=== PATIENT | male | born 1960 | race Caucasian/White ===

== ENCOUNTER → 2019-10-08 11:01 | Outpatient (BNVA) | payer BC, SELFPAY | PROVIDERS: Family Provider Family Medicine; PCP Family Medicine; Visit Provider Family Medicine | DX: E11.42 Type 2 diabetes mellitus with diabetic polyneuropathy (principal); R35.1 Nocturia | CPT/HCPCS: 80053; 80061; 83036; 84153; 85025 ==

== ENCOUNTER → 2020-01-17 08:30 | Outpatient (BNVA) | payer BC, SELFPAY | PROVIDERS: Family Provider Family Medicine; PCP Family Medicine; Visit Provider Family Medicine | DX: E11.42 Type 2 diabetes mellitus with diabetic polyneuropathy (principal) | CPT/HCPCS: 80053; 83036 ==

== ENCOUNTER → 2020-03-31 09:21 | Outpatient (BNVA) | payer BC, SELFPAY | PROVIDERS: Family Provider Family Medicine; PCP Family Medicine; Visit Provider Family Medicine | DX: E78.5 Hyperlipidemia, unspecified (principal); M17.0 Bilateral primary osteoarthritis of knee; F41.1 Generalized anxiety disorder; E11.42 Type 2 diabetes mellitus with diabetic polyneuropathy; Z68.32 Body mass index [BMI] 32.0-32.9, adult; F17.211 Nicotine dependence, cigarettes, in remission; Z71.89 Other specified counseling | CPT/HCPCS: 80053; 80061 ==

== ENCOUNTER → 2020-04-30 10:21 | Outpatient (BNVA) | payer BC, SELFPAY | PROVIDERS: Family Provider Family Medicine; PCP Family Medicine; Visit Provider Family Medicine | DX: E11.42 Type 2 diabetes mellitus with diabetic polyneuropathy (principal); M54.5 Low back pain | CPT/HCPCS: 80053; 83036 ==

== ENCOUNTER → 2020-07-29 14:11 | Outpatient (BNVA) | payer BC, SELFPAY | PROVIDERS: Family Provider Family Medicine; PCP Family Medicine; Visit Provider Family Medicine | DX: E11.42 Type 2 diabetes mellitus with diabetic polyneuropathy (principal); E78.5 Hyperlipidemia, unspecified | CPT/HCPCS: 80053; 81015; 82043; 83036; 85025 ==

== ENCOUNTER → 2020-11-26 09:09 | Outpatient (BNVA) | payer OTHER, SELFPAY | PROVIDERS: Family Provider Family Medicine; PCP Family Medicine; Visit Provider Family Medicine | DX: F41.1 Generalized anxiety disorder (principal); E11.42 Type 2 diabetes mellitus with diabetic polyneuropathy; E78.5 Hyperlipidemia, unspecified; R03.0 Elevated blood-pressure reading, without diagnosis of hypertension | CPT/HCPCS: 80053; 80061; 83036 ==

== ENCOUNTER → 2021-02-24 09:13 | Outpatient (BNVA) | payer OTHER, SELFPAY | PROVIDERS: Family Provider Family Medicine; PCP Family Medicine; Visit Provider Family Medicine | DX: E11.42 Type 2 diabetes mellitus with diabetic polyneuropathy (principal); M17.0 Bilateral primary osteoarthritis of knee; F41.1 Generalized anxiety disorder; E78.5 Hyperlipidemia, unspecified; Z68.32 Body mass index [BMI] 32.0-32.9, adult; F17.211 Nicotine dependence, cigarettes, in remission; Z71.89 Other specified counseling | CPT/HCPCS: 80053; 83036 ==

== ENCOUNTER → 2021-08-25 08:41 | Outpatient (BNVA) | payer OTHER, SELFPAY | PROVIDERS: Family Provider Family Medicine; PCP Family Medicine; Visit Provider Family Medicine | DX: E11.42 Type 2 diabetes mellitus with diabetic polyneuropathy (principal) | CPT/HCPCS: 80053; 82043; 83036; 85025 ==

== ENCOUNTER → 2021-09-24 08:45 | Outpatient (BNVA) | payer OTHER, SELFPAY | PROVIDERS: Family Provider Family Medicine; PCP Family Medicine; Visit Provider Family Medicine | DX: E11.42 Type 2 diabetes mellitus with diabetic polyneuropathy (principal); E78.5 Hyperlipidemia, unspecified; F41.1 Generalized anxiety disorder; R03.0 Elevated blood-pressure reading, without diagnosis of hypertension | CPT/HCPCS: 80053 ==

== ENCOUNTER → 2021-11-17 09:17 | Outpatient (BNVA) | payer OTHER, SELFPAY | PROVIDERS: Family Provider Family Medicine; PCP Family Medicine; Visit Provider Family Medicine | DX: E11.42 Type 2 diabetes mellitus with diabetic polyneuropathy (principal); E78.5 Hyperlipidemia, unspecified | CPT/HCPCS: 80061; 83036 ==

== ENCOUNTER 2022-05-20 10:15 | Outpatient (CLI) | payer OTHER, SELFPAY | END 2022-05-20 10:16 | disposition home or self-care (01) | LOC: SPT 10:16 | PROVIDERS: Family Provider Family Medicine; PCP Family Medicine; Visit Provider Podiatrist Foot & Ankle Surgery | DX: Z46.89 Encounter for fitting and adjustment of other specified devices (principal); M21.41 Flat foot [pes planus] (acquired), right foot; M21.42 Flat foot [pes planus] (acquired), left foot; E11.42 Type 2 diabetes mellitus with diabetic polyneuropathy | CPT/HCPCS: 97760; L3030 ==

== ENCOUNTER → 2022-08-16 09:55 | Outpatient (BNVA) | payer OTHER, SELFPAY | PROVIDERS: Family Provider Family Medicine; PCP Family Medicine; Visit Provider Family Medicine | DX: E78.5 Hyperlipidemia, unspecified (principal); E11.42 Type 2 diabetes mellitus with diabetic polyneuropathy; R35.1 Nocturia; M17.0 Bilateral primary osteoarthritis of knee; H61.23 Impacted cerumen, bilateral; E11.9 Type 2 diabetes mellitus without complications | CPT/HCPCS: 80053; 80061; 82043; 83036; 84153; 85025 ==

== ENCOUNTER → 2022-12-06 10:38 | Outpatient (BNVA) | payer OTHER, SELFPAY | PROVIDERS: Family Provider Family Medicine; PCP Family Medicine; Visit Provider Family Medicine | DX: E11.42 Type 2 diabetes mellitus with diabetic polyneuropathy (principal) | CPT/HCPCS: 80053; 83036 ==

== ENCOUNTER → 2023-05-13 11:52 | Outpatient (BNVA) | payer OTHER, SELFPAY | PROVIDERS: Family Provider Family Medicine; PCP Family Medicine; Visit Provider Family Medicine | DX: E11.42 Type 2 diabetes mellitus with diabetic polyneuropathy (principal) | CPT/HCPCS: 80053; 80061; 82043; 83036; 85025 ==

== ENCOUNTER → 2023-11-07 08:23 | Outpatient (BNVA) | payer OTHER, SELFPAY | PROVIDERS: Family Provider Family Medicine; PCP Family Medicine; Visit Provider Family Medicine | DX: E11.42 Type 2 diabetes mellitus with diabetic polyneuropathy (principal); R35.1 Nocturia | CPT/HCPCS: 80048; 83036; 84153 ==

== ENCOUNTER → 2024-03-27 13:32 | Outpatient (BNVA) | payer OTHER, SELFPAY | PROVIDERS: Family Provider Family Medicine; PCP Family Medicine | DX: E11.42 Type 2 diabetes mellitus with diabetic polyneuropathy (principal); E78.5 Hyperlipidemia, unspecified | CPT/HCPCS: 80053; 80061; 83036 ==

== ENCOUNTER 2024-05-07 08:56 | Day surgery (SDC) | payer OTHER, SELFPAY ==
--- NOTE | 2024-05-07 09:14 | ANES.PREANE2 ---
Pre-Anesthetic Assessment Height/Weight: Height 1.68 m Operation Date: 05/07/24 10:00 Proposed Procedures p Colonoscopy - 77854, Z12.11, G0121(Not Applicable) - Anand Mazariegos MD Familial anesthetic complications: None Was Beta Felicia taken within 24 hours: N/A Was Clonidine taken within 24 hours: N/A Last intake: > 8hrs Social No alcohol and No tobacco Exam alert, oriented x 3, clear to auscultation bilaterally and regular rate & rhythm Airway Mallampati: Class II Dentition: chipped and other (multiple missing) CV/HEM Hypertension Metabolic Diabetes Mellitus Anesthetic Plan ASA status: 3 Anesthesia: MAC Risk of > 500 ml blood loss (7ml/kg in children): No Medications/Allergies Home Medications Medication Instructions Recorded Confirmed Last Taken Type Custom Sole Supports #1 ea 03/02/22 03/29/24 Unknown Rx naproxen 500 mg tablet (Naprosyn) 500 mg PO BID PRN pain #180 tabs 12/06/22 05/03/24 Unknown Rx lisinopril 5 mg tablet 5 mg PO DAILY #90 tabs 11/07/23 05/03/24 05/02/24 Rx metformin 1,000 mg tablet 1,000 mg PO BID #180 tabs 11/08/23 05/03/24 05/02/24 Rx Diabetic shoes with 3 inserts #1 ea 12/29/23 03/29/24 Unknown Rx venlafaxine 50 mg tablet 50 mg PO DAILY 90 days #90 tabs 03/28/24 05/03/24 05/02/24 Rx cetirizine 10 mg tablet 10 mg PO DAILY 05/03/24 05/03/24 05/02/24 History dulaglutide 3 mg/0.5 mL 3 mg SUBCUT .WEEKLY 05/03/24 05/03/24 04/22/24 History subcutaneous pen injector (Trulicity) empagliflozin 10 mg tablet 10 mg PO DAILY 05/03/24 05/03/24 05/02/24 History (Jardiance) ketoconazole 2 % topical cream 1 applic topical BID PRN tinea 05/03/24 05/03/24 Unknown History pedis Allergies Allergy/AdvReac Type Severity Reaction Status Date / Time No Known Allergies Allergy Verified 05/03/24 09:35 [facility] Anesthesia Medical History (Updated 03/27/24 @ 13:26 by Gali Donohue NP) Screening for colon cancer Erectile dysfunction Type 2 diabetes mellitus, without long-term current use of insulin DEONTE (generalized anxiety disorder) Surgical History (Updated 03/29/24 @ 11:53 by FEDERICO Noguera) Hx of tonsillectomy H/O splenectomy History of surgery on right wrist History of hernia surgery Family History Other CAD (coronary artery disease) Cancer Melanoma Psychiatric illness Social History Smoking and tobacco/nicotine status: never used tobacco/nicotine Alcohol intake: never Substance/Drug Use: never Current occupational status: unemployed Data Anesthesia Cardiac Studies: No Data to Display
[2024-05-07 09:22] VITALS: BP 125/81; PULSE 80; RESP 16; TEMP 36.8; O2SAT 93; BMI 29.0
[2024-05-07] MEDS: sodium chloride 0.9% 1,000 ML 30 ML IV (09:25)
[2024-05-07 09:29] LABS: Glucose Point of Care 192 mg/dL (70-110)
--- NOTE | 2024-05-07 10:25 | W.PM.OPSUD ---
Surgery/Procedure H&P Update DATE OF PROCEDURE: May 07, 2024 DATE H&P PERFORMED: 03/29/24 H&P UPDATE INFORMATION: I have reviewed H&P completed within last 30 days, I have examined patient prior to procedure and No changes to prior documentation PLANNED PROCEDURE: Operation Date: 05/07/24 10:00 Proposed Procedures p Colonoscopy - 78963, Z12.11, G0121(Not Applicable) - Anand Mazariegos MD
--- NOTE | 2024-05-07 10:26 | W.PM.OPSUD ---
Surgery/Procedure H&P Update DATE OF PROCEDURE: May 07, 2024 DATE H&P PERFORMED: 03/29/24 H&P UPDATE INFORMATION: I have reviewed H&P completed within last 30 days, I have examined patient prior to procedure and No changes to prior documentation PLANNED PROCEDURE: Operation Date: 05/07/24 10:00 Proposed Procedures p Colonoscopy - 37446, Z12.11, G0121(Not Applicable) - Anand Mazariegos MD
[2024-05-07 11:12] VITALS: BP 108/75; PULSE 87; RESP 18; TEMP 36.1; O2SAT 91
--- NOTE | 2024-05-07 11:12 | W.PM.OPSFHP ---
Same Day Surgery H&P Indication for Procedure/HPI DATE OF PROCEDURE: May 07, 2024 CHIEF COMPLAINT/INDICATIONFOR SURGICAL PROCEDURE: average risk screening colonscopy PREOP DIAGNOSIS: screening colonoscopy PLANNED PROCEDURE: Operation Date: 05/07/24 10:00 Proposed Procedures p Colonoscopy - 37199, Z12.11, G0121(Not Applicable) - Anand Mazariegos MD Medications/Allergies* Home Medications Medication Instructions Recorded Confirmed Type cetirizine 10 mg tablet 10 mg PO DAILY 05/03/24 05/07/24 History dulaglutide 3 mg/0.5 mL 3 mg SUBCUT .WEEKLY 05/03/24 05/07/24 History subcutaneous pen injector (Trulicity) empagliflozin 10 mg tablet 10 mg PO DAILY 05/03/24 05/07/24 History (Jardiance) ketoconazole 2 % topical cream 1 applic topical BID PRN tinea 05/03/24 05/07/24 History pedis Allergies/Adverse Reactions Allergy/AdvReac Type Severity Reaction Status Date / Time No Known Allergies Allergy Verified 05/07/24 09:19 Current Medications: Generic Name Dose Route Start Last Admin Trade Name Freq PRN Reason Stop Dose Admin Sodium Chloride 1,000 mls @ 30 mls/hr 05/07/24 09:15 05/07/24 09:25 Sodium Chloride 0.9% IV 05/08/24 09:14 30 mls/hr .Q24H TAZ Administration Pertinent History/Comorbid Conditions* Medical History (Updated 03/27/24 @ 13:26 by Gali Donohue NP) Screening for colon cancer Erectile dysfunction Type 2 diabetes mellitus, without long-term current use of insulin DEONTE (generalized anxiety disorder) Surgical History (Updated 09/29/19 @ 21:37 by Jared Burks DPM) Hx of tonsillectomy H/O splenectomy History of surgery on right wrist History of hernia surgery Family History (Updated 10/08/19 @ 10:33 by Lindsey Mcknight LPN) CAD (coronary artery disease) Melanoma Psychiatric illness Cancer Social History Smoking and tobacco/nicotine status: never used tobacco/nicotine Alcohol intake: never Substance/Drug Use: never Current occupational status: unemployed Pertinent Exam Findings alert, oriented x 3, clear to auscultation bilaterally, regular rate & rhythm and procedure specific exam findings abdomen soft, nt, nd Recommendations Surgery/Procedure today Other Plans: colonoscopy today Coding Level of Care Code Acute Code for Chg Fwd Time Spent (min) 30
[2024-05-07 11:30] VITALS: BP 109/79; PULSE 80; RESP 16; O2SAT 93
--- NOTE | 2024-05-07 11:50 | ANE.PACU2 ---
Inpatient post-anesthesia follow up: Airway intact: Yes Vital signs: Temperature 97.0 F Pulse Rate 80 Respiratory Rate 16 Blood Pressure 109/79 Pulse Oximetry 93 Oxygen Delivery Me thod Room Air Oxygen Flow Rate Fraction of Inspir ed Oxygen Hydration adequate: Yes Nausea and vomiting: No Pain level: 1 Mental status: Baseline
== END 2024-05-07 11:50 | disposition home or self-care (01) ==
PROVIDERS: PCP Pediatrics; Visit Provider Student in an Organized Health Care Education/Training Program
PROC: 0DJD8ZZ Inspection of Lower Intestinal Tract, Via Natural or Artificial Opening Endoscopic (ICD-10-PCS; CPT 45378; principal; 2024-05-07 10:00)
DX: Z12.11 Encounter for screening for malignant neoplasm of colon (principal); K64.1 Second degree hemorrhoids; E11.9 Type 2 diabetes mellitus without complications; F41.1 Generalized anxiety disorder; I10 Essential (primary) hypertension; Z79.84 Long term (current) use of oral hypoglycemic drugs
CPT/HCPCS: 36416; 45380; 82962; J2704; J7030

== ENCOUNTER → 2024-08-02 08:52 | Outpatient (BNVA) | payer OTHER, SELFPAY | DX: E78.5 Hyperlipidemia, unspecified (principal); E11.42 Type 2 diabetes mellitus with diabetic polyneuropathy | CPT/HCPCS: 80053; 80061; 83036 ==

== ENCOUNTER → 2024-12-04 08:30 | Outpatient (BNVA) | payer OTHER, MEDICARE, SELFPAY | DX: E78.5 Hyperlipidemia, unspecified (principal); E11.42 Type 2 diabetes mellitus with diabetic polyneuropathy | CPT/HCPCS: 80053; 80061; 83036; 86618; 86666; 86757 ==

== ENCOUNTER → 2025-03-08 08:39 | Outpatient (BNVA) | payer OTHER, MEDICARE, SELFPAY | DX: E11.42 Type 2 diabetes mellitus with diabetic polyneuropathy (principal) | CPT/HCPCS: 80053; 83036; 85025 ==

== ENCOUNTER → 2025-05-14 09:38 | Outpatient (BNVA) | payer OTHER, MEDICARE, SELFPAY | DX: E11.42 Type 2 diabetes mellitus with diabetic polyneuropathy (principal) | CPT/HCPCS: 80053; 83036 ==